=== PATIENT | female | born 1955 | race Caucasian/White ===

== ENCOUNTER 2017-03-29 20:32 | Emergency (ER) | payer SELFPAY ==
[2017-03-29 20:37] VITALS: BP 104/71; PULSE 69; TEMP 98.4; BMI 20.1
--- NOTE | 2017-03-29 21:40 | PDOC ---
History of Present Illness - General Chief Complaint: Injury Stated Complaint: LEG PAIN Past History - Past Medical History Allergies/Adverse Reactions: Allergies Allergy/AdvReac Type Severity Reaction Status Date / Time No Known Allergies Allergy Verified 03/29/17 22:00 Home Medications: Ambulatory Orders Cyclobenzaprine HCl [Flexeril -] 10 mg PO HS #7 tablet 03/29/17 COPD: No Other medical history: glaucoma - Suicide/Smoking/Psychosocial Hx Smoking History: Never smoked *Physical Exam - Vital Signs Last Vital Signs Temp Pulse Resp BP Pulse Ox 98.4 F 69 18 104/71 100 03/29/17 20:35 03/29/17 20:35 03/29/17 20:35 03/29/17 20:35 03/29/17 20:35 *DC/Admit/Observation/Transfer Diagnosis at time of Disposition: Low back pain Qualifiers: Chronicity: acute Back pain laterality: left Sciatica presence: with sciatica Sciatica laterality: sciatica of left side Qualified Code(s): M54.42 - Lumbago with sciatica, left side - Discharge Dispostion Disposition: HOME Condition at time of disposition: Good Admit: No - Prescriptions Prescriptions: Cyclobenzaprine HCl [Flexeril -] 10 mg PO HS #7 tablet - Referrals Referrals: Gagandeep Abraham MD [Staff Physician] - - Patient Instructions Printed Discharge Instructions: DI for Low Back Pain Additional Instructions: You have low back pain after falling. Your x-rays showed no fractures or broken bones. Please take 800mg ibuprofen every 8 hours for the next week to help with the pain, not to exceed 3,000mg a day. You were prescribed flexaril. You may take this at night. Do not drive after taking this medication as it may make you sleepy. Apply warm compresses to the back to help with your pain. Follow up with orthopedics in 5-7 days if your symptoms are not resolving. Return to the ED if you have worsening pain, fevers, chills, loss of bladder or bowel control, or any changes in your symptoms - Post Discharge Activity Forms/Work/School Notes: Back to Work
[2017-03-29] MEDS ORDERED: CYCLOBENZAPRINE HCL 10 MG TABLET (FP) PO ONE (21:56)
[2017-03-29] MEDS ORDERED: IBUPROFEN 600 MG TABLET (FP) PO ONE (21:56)
== END 2017-03-29 23:17 | disposition home or self-care (01) ==
LOC: JERFT 20:32
DX: M54.42 Lumbago with sciatica, left side (principal); W18.39XA Other fall on same level, initial encounter; Y93.89 Activity, other specified; Y92.9 Unspecified place or not applicable; H40.9 Unspecified glaucoma
CPT/HCPCS: 73590-TC-LT; 73610-TC-LT; 73630-TC-LT; 99281-25